=== PATIENT | male | born 1980 ===

== ENCOUNTER → 2016-08-31 | Day surgery (SDC) | payer BC ==
[~2016-08-31] VITALS: Ht 182.9 cm; Wt 74.8 kg
[~2016-08-31] MED LIST: LR 1000ml 1,000 ML IVLG SCH; LR 1000ml ONE; NKM; Propofol 10mg/ml 20ml IV ONE
[2016-08-31 07:42] VITALS: BP 100/66
--- NOTE | 2016-08-31 07:56 | Short Stay Surgery H&P ---
History of Present Illness History of Present Illness Chief Complaint Abdominal pains and rectal bleeding with diarrhea. DAMIÁN Arguelles is a 36 year old male who was admitted on for Constipation, Abdominal Pain, diarrhea and rectal bleed. Medication History Scheduled No Known Medications* ([facility] - No Known Medications*), 0 ., (Reported) Review of Systems Cardiovascular: Reports: no symptoms Skeletal: Reports: no symptoms Gastrointestinal: Reports: other Genitourinary: Reports: no symptoms Neurologic: Reports: no symptoms Endocrine: Reports: no symptoms Hematologic: Reports: no symptoms Physical Exam Vital Signs Last Vital Signs Date Time Temp Pulse Resp B/P Pulse Ox O2 Delivery O2 Flow Rate FiO2 08/31/16 07:42 97.5 73 18 100/66 99 Room Air Skin: normal HENT: normal Heart: normal Lungs: normal Abdomen: abnormal Extremities: normal Genitourinary: normal Plan Plan of Care Upper and lower GI endoscopy and biopsy. Preop Interventions None. Summary of Findings See the reports. Final Diagnosis: Attestation Are the patient's medical conditions optimized for surgery? Attestation Response: yes BERE JOSEPH Aug 31, 2016 07:56
--- NOTE | 2016-08-31 07:57 | Pre-Procedure Note/Attestation ---
Pre-Procedure Note/Attestation Complete Prior to Procedure Planned Procedure: left Procedure Narrative: The endoscopic exam of the upper and the lower GI tract. Indications for Procedure Pre-Operative Diagnosis: R/O Colitis, polyps/hemorrhoids. Attestation I attest that I discussed the nature of the procedure; its benefits; risks and complications; and alternatives (and the risks and benefits of such alternatives ), prior to the procedure, with the patient (or the patient's legal admissions representative). I attest that, if there was a reasonable possibility of needing a blood transfusion, the patient (or the patient's legal admissions representative) was given the [place] [employer] standardized written summary, pursuant to the Tadeo Montezuma Blood Safety Act ([place] Health and Safety Code # 1645, as amended). I attest that I re-evaluated the patient just prior to the surgery and that there has been no change in the patient's H&P, except as documented below: OPALSAID Aug 31, 2016 07:57
--- NOTE | 2016-08-31 08:12 | Anethesia Preoperative Eval ---
Anesthesia Pre-op PMH/ROS General Date of Evaluation: Aug 31, 2016 Time of Evaluation: 07:45 Anesthesiologist: meaghan ASA Score: ASA 2 Mallampati Score Class I : Soft palate, uvula, fauces, pillars visible Class II: Soft palate, uvula, fauces visible Class III: Soft palate, base of uvula visible Class IV: Only hard plate visible Mallampati Classification: Class II Surgeon: gio Diagnosis: abdominal pain GI bleed Surgical Procedure: egd/colonoscopy Anesthesia History: none Anesthesia Pre-op Phys. Exam Physician Exam Last Vital Signs Date Time Temp Pulse Resp B/P Pulse Ox O2 Delivery O2 Flow Rate FiO2 08/31/16 07:42 97.5 73 18 100/66 99 Room Air Airway Exam Mallampati Score: Class II Teeth: intact Anesthesia Pre-op A/P Risk Assessment & Plan Plan: propofol Status Change Before Surgery: Rustam Dyer MD Aug 31, 2016 08:12
--- NOTE | 2016-08-31 08:13 | Immediate Post-Op Evaluation ---
Immediate Post-Op Evalulation Immediate Post-Op Evalulation Date of Evaluation: Aug 31, 2016 Time of Evaluation: 08:45 IV Fluids: 500 Blood Pressure Systolic: 100 Blood Pressure Diastolic: 62 Pulse Rate: 64 Respiratory Rate: 17 O2 Sat by Pulse Oximetry: 98 Temperature (Fahrenheit): 97.4 Pain Score (1-10): 0 Nausea: No Vomiting: No Complications none Patient Status: awake, patent, none Hydration Status: adequate Rustam Muñoz MD Aug 31, 2016 08:13
--- NOTE | 2016-08-31 08:14 | 48 Hour Post Anesthesia Eval ---
Post Anesthesia Evaluation Date of Evaluation: Aug 31, 2016 Time of Evaluation: 09:10 Blood Pressure Systolic: 94 0: 64 Pulse Rate: 55 Respiratory Rate: 20 Temperature (Fahrenheit): 97.4 O2 Sat by Pulse Oximetry: 100 Airway: patent Nausea: No Vomiting: No Pain Intensity: 0 Hydration Status: adequate Cardiopulmonary Status: stable Mental Status/LOC: patient returned to baseline Follow-up Care/Observations: n/a Post-Anesthesia Complications: tolerated well Follow-up care needed: ready to discharge Rustam Muñoz MD Aug 31, 2016 08:14
--- NOTE | 2016-08-31 08:38 | Endoscopy Procedure Note ---
Endoscopy Procedure Note Indication for Procedure: Abdominal pains and rectal bleeding with recent diarrhea Procedures Performed: EGD - Completely normal Upper GI endoscopy, biopsies obtained per random from the second portion of duodenum and gastric body., colonoscopy - Acute rectosigmoiditis/colitis with incidental findings of few diverticuli in proximal ascending colon. Numerous biospies otained from different parts of the colon. Terminal ileum was normal and biospied per random Operative Findings/Diagnosis: Left sided acute colitis. Specimen: yes Pt Tolerated Procedure Well: Yes Estimated Blood Loss: none Anesthesiologist: Dr. Muñoz Anesthesia: moderate sedation Medication Given: see anesthesia record Implant(s) used?: No 50 yrs or older w/o bx or poly: No 10yrs. F/U not recommended: Yes Med reason:<3 yrs.: System Reason:<3 yrs.: BERE JOSEPH Aug 31, 2016 08:38
[2016-08-31 08:39] VITALS: BP 100/62
--- NOTE | 2016-08-31 08:40 | Discharge Instructions ---
Discharge Instructions Discharge Instructions Follow up with: See thedocotor after 2 weeks in the office. Prescriptions was writte. For Congestive Heart Failure Reminder Report to your physician any weight gain of 5 pounds or more in one week. OPAL,SAID Aug 31, 2016 08:40
[2016-08-31 08:45] VITALS: BP 94/64
[2016-08-31 08:51] VITALS: BP 92/64
[2016-08-31 09:07] VITALS: BP 94/64
[2016-08-31 09:40] VITALS: BP 98/67
--- NOTE | 2016-08-31 16:28 | Operative Note - Dictated ---
DATE OF OPERATION: 08/31/2016 PREOPERATIVE DIAGNOSES: Abdominal pain, diarrhea, and rectal bleeding. POSTOPERATIVE DIAGNOSES: Completely normal upper gastrointestinal endoscopy. Biopsy was taken per random from gastric body and second portion of duodenum. PROCEDURE: Esophagogastroduodenoscopy with biopsy. SURGEON: Magda Frances M.D. MEDICATION USED: Per Dr. Muñoz, anesthesiologist. INSTRUMENT: GIF Olympus upper gastrointestinal video endoscope. DESCRIPTION OF PROCEDURE: The patient, after arriving at endoscopy unit, was told about risks and benefits of the procedure, which he accepted and signed the informed consent. At this time, he was put on the left lateral decubitus position. After adequate IV sedation, the scope was gently passed through the cricopharyngeal area, was lodged in the upper esophagus, and gradually advanced towards gastroesophageal junction. The entire length of esophagus seemed to be completely normal. There was no evidence of inflammatory process, ulceration, stricture, exudate, etc. No tumors or polyps found. Finally, the scope reached the GE junction, which looked normal without any evidence of Ramos's or hiatal hernia. At this time, the scope was advanced into the stomach. Gastric cavity was distended and gradually, the areas of the fundus and the body and the antrum were examined, which looked normal with normal mucosa and no evidence of ulcers, tumors, polyps, etc. At this time, a retroflexion maneuver was applied. The area of the gastroesophageal junction was examined in a closer fashion, which revealed normal findings. One random biopsy from gastric body was obtained. Subsequently, the scope was passed through normal looking antrum, from there was passed through the pylorus. First and second portions of duodenum were also found to be completely normal. A random biopsy from second portion of duodenum was also obtained. Subsequently, the procedure was terminated. The patient tolerated the procedure well. Magda Frances M.D. DR: DEON JOB#: [id number] CC:
--- NOTE | 2016-08-31 16:48 | Operative Note - Dictated ---
DATE OF OPERATION: 08/31/2016 PROCEDURES: 1. Total colonoscopy with multiple biopsies. 2. Terminal ileoscopy with biopsy. SURGEON: Ronald Llanos M.D. PREOPERATIVE DIAGNOSES: 1. Rectal bleeding. 2. Abdominal pain. 3. Diarrhea. POSTOPERATIVE DIAGNOSES: 1. Acute moderate proctosigmoiditis. 2. Incidental findings of few diverticula in ascending colon. 3. Completely normal terminal ileum. Biopsy was done from terminal ileum per random. MEDICATION USED: Per Dr. Muñoz, anesthesiologist. INSTRUMENT: GIF upper Olympus video colonoscope. DESCRIPTION OF PROCEDURE: The patient after arriving in the endoscopy unit was told about risks and benefits of the procedure, which he accepted and signed the informed consent. He was then put in the left lateral decubitus position. After adequate IV sedation, the scope was gently passed through the anal area and a retroflexion maneuver, which was applied here, revealed evidence of moderate inflammatory process and easy friability over the rectal mucosa consistent with acute proctitis, which continued all the way to the rectosigmoid area up to the level of 40 to 45 cm. This was quite consistent with acute colitis and multiple biopsies from different areas of the colon including this area was obtained. Subsequently, the scope was passed through normal looking proximal descending colon, reached to the splenic flexure, transverse colon, right hepatic flexure, and finally was guided into the right colon all the way to the base of the cecum. Incidental findings were that there was a few nonsignificant diverticula in the proximal ascending colon, which looked normal without any evidence of inflammatory process. At this time, the scope was gently passed through the terminal ileum and advanced up to 10 cm inside of it, which revealed normal ileal mucosa without any ulcerations or inflammatory process. No evidence of Crohn's was found. However, one random biopsy from this area was obtained. At this point, within 7 minutes, the scope gradually pulled out and multiple biopsies from different sites of the colon starting from the right proximal ascending colon were obtained. The colon cleanup was adequate. In this procedure, withdrawal of the scope took approximately 10 minutes. The patient tolerated the procedure well and left the endoscopy room in a good condition. Magda Frances M.D. DR: DEON JOB#: [id number] CC:
== END | disposition home or self-care (01) ==
LOC: GAS 07:02
DX: K29.50 Unspecified chronic gastritis without bleeding (principal); K52.9 Noninfective gastroenteritis and colitis, unspecified; K62.5 Hemorrhage of anus and rectum; K63.89 Other specified diseases of intestine; K57.30 Diverticulosis of large intestine without perforation or abscess without bleeding
CPT/HCPCS: 43239; 45380; J2704; J7120; 94003; 94150